=== PATIENT | female | born 2000 | race Caucasian/White ===

== ENCOUNTER 2021-02-27 17:20 | Emergency (ER) | payer OTHER ==
[~2021-02-27] VITALS: Ht 167.6 cm; Wt 49.4 kg
[2021-02-27 18:25] LABS: URINE BILIRUBIN 2+ (Negative); URINE BLOOD TRACE (Negative); URINE COLOR DARK YELLOW; URINE GLUCOSE-RANDOM NEGATIVE (Negative); URINE KETONES 3+ (Negative); URINE LEUKOCYTES 1+ (Negative); URINE NITRITE NEGATIVE (Negative); URINE PROTEIN 1+ (Negative); URINE SPECIFIC GRAVITY >= 1.030 (1.005-1.030)
[2021-02-27 18:26] LABS: URINE CLARITY SL HAZY
[2021-02-27 18:30] LABS: ABSOLUTE BASOPHILS 0.1 thou/uL (0.0-0.2); ABSOLUTE EOSINOPHILS 0.1 thou/uL (0.0-0.7); ABSOLUTE LYMPHOCYTES 2.6 thou/uL (0.8-5.3); ABSOLUTE MONOCYTES 0.9 thou/uL (0.0-1.2); ABSOLUTE NEUTROPHILS 11.7 thou/uL (1.6-8.1); BASOPHILS 0.5 %; EOSINOPHILS 0.6 %; HEMATOCRIT 41.5 % (37.0-47.0); HEMOGLOBIN 14.3 gm/dL (12.0-15.0); LYMPHOCYTES 17.1 %; MCH 27.8 pg (26.0-34.0); MCHC 34.4 g/dL (28.0-37.0); MCV 80.8 fL (80.0-100.0); MPV 7.5 fl. (7.2-11.1); NUCLEATED RBCS 0 /100WBC; PLATELET COUNT* 401 thou/uL (150-400); POLYS 75.8 %; RBC 5.14 mil/uL (4.20-5.00); WBC 15.4 thou/uL (4.0-11.0)
[2021-02-27 18:41] LABS: ANION GAP 8 mmol/L (7-16); BUN 9 mg/dL (7-18); CALCIUM 9.4 mg/dL (8.5-10.1); CHLORIDE 97 mmol/L (98-107); CO2 30 mmol/L (21-32); CREATININE 0.8 mg/dL (0.6-1.3); GLUCOSE 106 mg/dL (70-99); POTASSIUM 3.6 mmol/L (3.5-5.1); SODIUM 135 mmol/L (136-145)
[2021-02-27 18:42] LABS: BACTERIA >30 Many /HPF (None Seen); CASTS None Seen /LPF (None Seen); CRYSTALS None Seen /LPF (None Seen); MUCUS 4-6 Moderate strn/LPF (None Seen); SQUAMOUS 4-10 Moderate /LPF (0-3); URINE RBC 3-10 Few /HPF (0-2); URINE WBC >25 Many /HPF (0-5)
[2021-02-27 18:46] LABS: ALBUMIN 3.5 g/dL (3.4-5.0); ALKALINE PHOSPHATASE 82 U/L (46-116); SGOT 12 U/L (15-37); SGPT < 6 U/L (30-65); TOTAL BILIRUBIN 0.1 mg/dL (<0.1-1.0); TOTAL PROTEIN 8.3 g/dL (6.4-8.2)
[2021-02-27] MEDS ORDERED: KEFLEX250 MG/5 M PO (18:51)
[2021-02-27] MEDS ORDERED: PREVACID 15 MG15 M4 DISSOLVE (18:51)
[2021-02-27 19:03] VITALS: BP 93/66
== END 2021-02-27 19:04 | disposition home or self-care (01) ==
LOC: M.ERS 17:20
PROVIDERS: Emergency Medicine
DX: N39.0 Urinary tract infection, site not specified (principal); R10.13 Epigastric pain